=== PATIENT | female | born 1985 | race Caucasian/White ===

== ENCOUNTER 2019-03-06 23:35 | Inpatient (IN) ==
[2019-03-06 23:58] VITALS: BMI 31.2
[2019-03-07] MEDS ORDERED: D5 1/2 NS 1000 ML 1,000 ML IV ONE (00:46)
[2019-03-07] MEDS ORDERED: AMPICILLIN VIAL 2 GRAM ONE (01:03)
[2019-03-07] MEDS ORDERED: NS 100 ML IV + SPIKE MINIBAG* 100 ML IV ONE (01:03)
[2019-03-07] MEDS ORDERED: D5 1/2 NS 1L W PITOCIN 20 UNITS/L 20 UNITS/1,000 ML BAG IV ONE (01:12)
[2019-03-07] MEDS ORDERED: PITOCIN ONE (01:12)
[2019-03-07 01:15] LABS: BASOPHILS # (AUTO) 0.1 X10^3/uL (0.0-0.1); MEAN CORPUSCULAR VOLUME 87.4 fL (80.0-100.0); RED CELL DISTRIBUTION WIDTH 13.7 % (11.6-16.5)
[2019-03-07 01:25] LABS: BASOPHILS % (AUTO) 0.5 % (0.2-1.0); EOSINOPHILS # (AUTO) 0.5 x10^3/uL (0.0-0.2); EOSINOPHILS % (AUTO) 2.3 % (0.9-2.9); HEMATOCRIT 33.4 % (36.0-47.0); HEMOGLOBIN 11.2 g/dL (12.0-16.0); LYMPHOCYTES # (AUTO) 2.5 X10^3/uL (1.3-2.9); LYMPHOCYTES % (AUTO) 11.5 % (21.0-51.0); MEAN CORPUSCULAR HEMOGLOBIN 29.3 pg (27.0-34.0); MEAN CORPUSCULAR HGB CONC 33.5 g/dL (33.0-35.0); MEAN PLATELET VOLUME 9.5 fL (7.4-11.0); MONOCYTES # (AUTO) 2.2 x10^3/uL (0.3-0.8); MONOCYTES % (AUTO) 10.3 % (0.0-13.0); NEUTROPHILS # (AUTO) 16.3 x10^3/uL (2.2-4.8); NEUTROPHILS % (AUTO) 75.4 % (42.0-75.0); PLATELET COUNT 177 X10^3/uL (150.0-450.0); RED BLOOD COUNT 3.82 X10^6/uL (3.5-5.4); WHITE BLOOD COUNT 21.6 X10^3/uL (3.6-10.0)
[2019-03-07 01:26] LABS: BLOOD UREA NITROGEN 5 mg/dL (7-18); CALCIUM 9.2 mg/dL (8.5-10.1); CARBON DIOXIDE 23.9 mmol/L (21-32); CHLORIDE 103 mmol/L (98-107); COR NA(FOR HYPERGLY) 138 mmol/L (136-145); CREATININE 0.63 mg/dL (0.55-1.02); SODIUM 138 mmol/L (136-145); eGFR NON BLACK RACES > 60 (>60)
[2019-03-07 01:34] LABS: BAND NEUTROPHILS % 7 % (0-10); PLATELET MORPHOLOGY COMMENT NORMAL (NORMAL)
--- NOTE | 2019-03-07 02:08 | DR.H&PGYN ---
H&P OBSTERICS/GYNECOLOGY Chief Complaint Chief Complaint: labor Allergies Allergies Allergy/AdvReac Type Severity Reaction Status Date / Time No Known Drug Allergies Allergy Verified 03/06/19 23:58 History of Present Illness History of Present Illness: 33yo WF presented in labor at 8cm. She reports a DELILAH of 03/17/19. She stated that she has possibly been leaking water for an unknown amount of time. Review of Systems Constitutional: denies See HPI, Fever, Chills, Sweats, Weakness and Malaise Eyes: No Symptoms Reported ENT: No Symptoms Reported Respiratory: No Symptoms Reported Cardiovascular: No Symptoms Reported Gastrointestinal: No Symptoms Reported Obsterical History : 3 Para: 2 Gynecologic History Last menstrual period:: unknown Past Medical History Past Gynecological History: Venereal Warts Medical History: No History Past Surgical History Surgical History: No History Family History Significant Family History: No pertinent family hx Social History Does patient currently use any type of tobacco product: No Have you used tobacco products in the last 12 months: No Does any household member use tobacco: No Alcohol Use: None Drug Use: None Prescription drug monitoring program results: PDMP was not reviewed Physical Exam Temperature: 98.4 F Blood Pressure: 141/96 Respiratory Rate: 20 Pulse Rate: 90 O2 Sat by Pulse Oximetry: 98 Oriented: Normal Eyes: Normal Respiratory: Normal Cardiovascular: Normal GI: Abdominal Pain Skin: Normal Musculoskeletal: Normal Psychiatric: Anxiety Mood Description: Anxious Affect: Anxious Speech Pattern: Clear Plan Plan: Expectant management of labor.
[2019-03-07] MEDS ORDERED: MILK OF MAGNESIA PO PRN (03:19)
[2019-03-07] MEDS ORDERED: MOTRIN TAB 800 MG PO PRN (03:19)
[2019-03-07] MEDS ORDERED: ADACEL or BOOSTRIX TDaP VACCINE IM ONE (03:19)
[2019-03-07] MEDS ORDERED: DERMOPLAST SPRAY TOP PRN (03:19)
[2019-03-07] MEDS ORDERED: AMBIEN PO PRN (03:19)
[2019-03-07] MEDS ORDERED: TYLENOL 325 MG TAB PO PRN (03:27)
[2019-03-07] MEDS ORDERED: TYLENOL 325 MG TAB PO ONE (03:31)
[2019-03-07] MEDS ORDERED: MEFOXIN 1 G in NS 100 ML IV + SPIKE MINIBAG* 100 ML IV SCH (04:00)
[2019-03-07 04:09] LABS: BILIRUBIN,URINE NEGATIVE (NEGATIVE); BLOOD/HEMOGLOBIN,URINE 2+ (NEGATIVE); GLUCOSE, URINE 1+ (NEGATIVE); KETONES,URINE 1+ (NEGATIVE); LEUKOCYTE ESTERASE ,URINE 1+ (NEGATIVE); NITRITES,URINE NEGATIVE (NEGATIVE); PROTEIN,URINE 2+ (NEGATIVE); UROBILINOGEN,URINE 1+ (NORMAL)
[2019-03-07 04:24] LABS: AMORPHOUS SEDIMENT,UR 1+ /HPF (NEGATIVE); APPEARANCE,URINE CLEAR (CLEAR); BACTERIA,URINE TRACE /HPF (NEGATIVE); COLOR,URINE DARK YELLOW (YELLOW); MUCUS,URINE FEW /HPF (NEGATIVE); SQUAMOUS EPITHELIAL CELL,UR RARE /HPF (NEGATIVE)
[2019-03-07 05:40] LABS: HEMATOCRIT 30.5 % (36.0-47.0); HEMOGLOBIN 10.1 g/dL (12.0-16.0)
[2019-03-07] MEDS: MEFOXIN 1 G in NS 100 ML IV + SPIKE MINIBAG* 100 ML IV SCH ×3 (05:52→21:31)
[2019-03-07] MEDS: PRENATAL PLUS PO SCH (09:22)
[2019-03-07] MEDS: ZANTAC PO SCH ×2 (09:22→21:26)
[2019-03-08] MEDS ORDERED: NS 500 ML IV 500 ML IV ONE (06:31)
[2019-03-08] MEDS: MEFOXIN 1 G in NS 100 ML IV + SPIKE MINIBAG* 100 ML IV SCH (06:48)
[2019-03-08] MEDS: PRENATAL PLUS PO SCH (08:57)
[2019-03-08] MEDS: ZANTAC PO SCH ×2 (08:57→20:59)
[2019-03-09] MEDS ORDERED: DEPO-PROVERA CONTRACEPTIVE INJ IM ONE (09:00)
[2019-03-09] MEDS: ZANTAC PO SCH (09:45)
[2019-03-09] MEDS: PRENATAL PLUS PO SCH (09:45)
[2019-03-09 10:01] VITALS: BP 116/61
[2019-03-09] MEDS ORDERED: ADACEL or BOOSTRIX TDaP VACCINE IM ONE (10:05)
== END 2019-03-09 12:00 | disposition home or self-care (01) | DRG 807 ==
LOC: ER 23:37 → LD 03-07 00:57 → MED/SURG 03-07 03:11
PROVIDERS: ADMIT Obstetrics & Gynecology; ATTEND Obstetrics & Gynecology
DX: Z3A.38 38 weeks gestation of pregnancy; Z23 Encounter for immunization; Z37.0 Single live birth; O80 Encounter for full-term uncomplicated delivery
CPT/HCPCS: 36415; 59409; 80048; 80307; 81001; 83020; 83021; 85014; 85018; 85025; 86592; 86850; 86900; 86901; 90715; 96365; 99284; A4216; A4222; S0197; G0434; J0290; J0694; J1050; J2590; J3490; J7040; J7050; S5010